=== PATIENT | female | born 1960 | race Caucasian/White ===

== ENCOUNTER → 2020-03-29 | Outpatient (CLI) | payer OTHER ==
--- NOTE | 2020-03-30 18:06 | PATH ---
[facility] [address] [place] [address] PATHOLOGY RPT PROCEDURE Name: MIRELLA QUINTANILLA RONI Room #: REG PIEDAD MJayy.#: [id number] Admission: 03/29/20 Date of : 58 Discharge: Report #: [id number] Path Case #: [id number] [facility] Accession Number: [id number] . 01 Material submitted: . breast - MEDIAL INFERIOR RIGHT BREAST. Modifiers: right, medial, inferior . 01 Clinical history: . RIGHT BREAST CALCIFICATIONS, STEREOTACTIC BIOPSY . 02 Diagnosis: Breast, medial inferior right breast, stereotactic needle core biopsy for calcifications: - Benign breast tissue with focal columnar cell change, and usual ductal hyperplasia associated with coarse calcifications. - Negative for atypia or malignancy. . (IUV:mml; 03/30/2020) QLM 03/30/2020 1152 Local . 02 Comment: Dr. Namrata Baird has seen a sales and merchandising representative slide of this case and concurs with my diagnosis. . (IUV:mml; 03/30/2020) . 02 Electronically signed: . Rubi Leggett MD, Pathologist NPI- [id number] . 01 Gross description: . The specimen is received in formalin, labeled "Mirella Quintanilla". No source is listed on the container. The source is listed on the requisition as, "right medial inferior breast". Received are multiple needle cores of fibrofatty tissue measuring 3.8 x 3.2 x 0.5 cm in aggregate dimensions. Also received within the containers a plastic cassette containing a single needle core of fibrofatty tissue measuring 3.6 cm in length by 0.5 cm in diameter. The suspect tissue is transferred to cassette A1, with the remainder of the specimen submitted in cassettes A2 through A4. The cold ischemic time is 3 minutes. The total formalin fixation time is 9 hours and 12 minutes. ([facility]; 03/29/2020) QAC/QAC 03/29/2020 1627 Local . 02 Pathologist provided ICD-10: N62 . 02 [place] [id number] PATHOLOGY RPT PROCEDURE Name: MIRELLA QUINTANILLA [facility] Room #: REG CL Kaleigh.#: [id number] Admission: 03/29/20 Date of : 58 Discharge: Report #: [id number] Path Case #: [id number] [facility] . [id number] Specimen Comment: A courtesy copy of this report has been sent to [phone], [phone] Specimen Comment: [phone] Specimen Comment: Report sent to / DR DEJESUS Performed at: [address], [place], [place] [id number] MD Colt Wynn MD Phone: [phone] Performed at: [address] [id number] MD Rubi Leggett MD Phone: [phone]
== END | disposition home or self-care (01) ==
LOC: RAD 11:31 → BC 15:23
PROVIDERS: ATTEND Surgery
DX: R92.1 Mammographic calcification found on diagnostic imaging of breast (principal); Z79.899 Other long term (current) drug therapy